=== PATIENT | female | born 1985 | race Caucasian/White ===

== ENCOUNTER 2024-07-10 20:58 | Emergency (ER) | payer MEDICAID ==
[~2024-07-10] VITALS: Ht 165.1 cm; Wt 70.5 kg
[2024-07-10 21:04] VITALS: TEMP 98.5
[2024-07-10] MEDS ORDERED: TOPI25 PO ×2 (21:05→21:46)
[2024-07-10] MEDS ORDERED: GABA-1181 PO (21:05)
[2024-07-10] MEDS ORDERED: MIRT-89 PO (21:05)
[2024-07-10] MEDS ORDERED: CLON-592 PO ×2 (21:05→21:46)
[2024-07-10] MEDS ORDERED: LEVE250T81 PO ×2 (21:05→21:46)
[2024-07-10 21:51] VITALS: BP 139/82; PULSE 104; RESP 18; O2SAT 97
== END 2024-07-10 22:59 | disposition home or self-care (01) ==
LOC: EMS 20:58
DX: G40.909 Epilepsy, unspecified, not intractable, without status epilepticus (principal); Z76.0 Encounter for issue of repeat prescription; Z88.0 Allergy status to penicillin; Z91.011 Allergy to milk products; Z91.040 Latex allergy status; Z91.018 Allergy to other foods; Z88.8 Allergy status to other drugs, medicaments and biological substances
CPT/HCPCS: 99281; Z7502